=== PATIENT | male | born 1985 | race Caucasian/White ===

== ENCOUNTER 2017-06-06 19:46 | Emergency (ER) | payer MEDICAID ==
[~2017-06-06] VITALS: Ht 170.2 cm; Wt 83.9 kg
--- NOTE | 2017-06-06 20:00 | NUR ---
BIBSELF C/O N/V S/P SEIZURE THIS MORNING 1AM, NAD NOTED, VSS, RESP EVEN AND UNLABORED, PT PUT ON HOSPITAL GOWN, AND MONITOR, SEIZURE PRECATION IMPLEMENTED. WAITING FOR MD ARROYO.
[2017-06-06] MEDS ORDERED: ONDANSETRON HCL/PF 4 MG/2 ML VIAL IVP ONE (21:00)
[2017-06-06] MEDS ORDERED: LORAZEPAM INJ 2 MG/ML VIAL IVP ONE (21:00)
[2017-06-06] MEDS ORDERED: IV NS 0.9% 1,000 ML BAG IV ONE ×2 (21:00→22:30)
[2017-06-06 21:03] LABS: BASOPHILS # (AUTO) 0.1 /CMM (0.0-0.2); BASOPHILS % (AUTO) 0.5 % (0.0-2.0); HEMATOCRIT 41 % (39-51); HEMOGLOBIN 13.9 g/dL (13.5-17.5); LYMPHOCYTES # (AUTO) 0.9 /CMM (0.8-4.8); LYMPHOCYTES % (AUTO) 5.3 % (20.0-44.0); MEAN CORPUSCULAR HEMOGLOBIN 30 PG (26.0-33.0); MEAN CORPUSCULAR HGB CONC 34 g/dl (31.0-36.0); MEAN CORPUSCULAR VOLUME 87 fL (80-96); MONOCYTES # (AUTO) 0.7 /CMM (0.1-1.30); MONOCYTES % (AUTO) 4.2 % (2.0-12.0); PLATELET COUNT (AUTO) 227 /CMM (150-450); RDW COEFFICIENT OF VARIATION 12.7 (11.5-15.0); WHITE BLOOD COUNT (AUTO) 17.7 K/uL (4.3-11.0)
[2017-06-06] MEDS ORDERED: LORAZEPAM INJ 2 MG/ML VIAL ONE (21:08)
[2017-06-06] MEDS ORDERED: ONDANSETRON HCL/PF 4 MG/2 ML VIAL ONE (21:09)
[2017-06-06 21:14] LABS: CALCIUM, SERUM 8.6 mg/dL (8.5-10.1); CREATININE 0.9 mg/dL (0.6-1.3); POTASSIUM 3.7 mmol/L (3.5-5.1)
[2017-06-06 21:26] LABS: PHENYTOIN (DILANTIN) 6.7 ug/ml (10.0-20.0)
[2017-06-06] MEDS ORDERED: PHENYTOIN EXTENDED RELEASE 100 MG CAPSULE PO ONE ×2 (22:00→22:04)
--- NOTE | 2017-06-06 22:00 | NUR ---
GIVEN 0.5MG OF DILAUDID, WASTED 1.5MG WITNESSED BY CURTIS Yancey RN.
--- NOTE | 2017-06-06 22:59 | NUR ---
CALLED RT FOR BREATHING TX
[2017-06-06] MEDS ORDERED: IPRATROPIUM NEB FS 0.5 MG/2.5 ML AMPUL.NEB NEB ONE (23:00)
[2017-06-06] MEDS ORDERED: ALBUTEROL FS 2.5 MG/3 ML VIAL.NEB NEB ONE (23:00)
--- NOTE | 2017-06-06 23:03 | NUR ---
Patient is resting comfortably in bed with eyes closed. Easily aroused. VSS
[2017-06-06] MEDS ORDERED: ALBUTEROL FS 2.5 MG/3 ML VIAL.NEB ONE (23:15)
[2017-06-06] MEDS ORDERED: IV NS 0.9% 250 ML IV ONE (23:15)
[2017-06-06] MEDS ORDERED: IPRATROPIUM NEB FS 0.5 MG/2.5 ML AMPUL.NEB ONE (23:15)
[2017-06-06] MEDS ORDERED: CT SWABBABLE VALVE TRANS SET 1 EA INFUS.SET MC ONE (23:15)
[2017-06-06] MEDS ORDERED: IOHEXOL-350 100 ML VIAL IV ONE (23:15)
--- NOTE | 2017-06-06 23:40 | NUR ---
PT TO [facility]SCAN
--- NOTE | 2017-06-07 01:25 | NUR ---
PT OK TO DISCHARGE PER DR IRAHETA. IV removed. Catheter intact and site benign. Pressure and 4x4 applied to site. No bleeding noted.Patient discharged to home in stable condition. Written and verbal after care instructions given. Patient verbalizes understanding of instruction.Patient is awake and alert to self, day, and place. PT ambulatory with a steady gait
[2017-06-07 01:46] VITALS: BP 124/80
== END 2017-06-07 01:46 | disposition home or self-care (01) ==
LOC: ER 19:54
DX: R11.2 Nausea with vomiting, unspecified (principal); G40.909 Epilepsy, unspecified, not intractable, without status epilepticus; J18.9 Pneumonia, unspecified organism; R79.1 Abnormal coagulation profile
CPT/HCPCS: 36415; 71275; 80048; 80185; 85025; 94640; 96360; 96361; 96374; 96375; 99285; A4606; J2060; J2405; J7030 ×2; J7050; Q9967; Z7610